=== PATIENT | female | born 1975 | race Caucasian/White ===

== ENCOUNTER 2020-01-02 08:41 | Emergency (ER) | payer OTHER ==
--- NOTE | 2020-01-02 09:11 | ED Physician Documentation ---
PD HPI ABD PAIN - Stated complaint Stated Complaint: RT SIDE PX - Chief complaint Chief Complaint: Abd Pain - History obtained from History obtained from: Patient - History of Present Illness Timing - onset: Yesterday Timing - duration: Days (2) Timing - details: Gradual onset Pain level max: 9 Pain level now: 5 Quality: Aching, Pain Location: RLQ Radiation: No: Chest, , Lower back, Left flank, Left shoulder, Right flank, R ight shoulder, Upper back Improved by: Laying still Worsened by: Moving Associated symptoms: Nausea. No: Fever, Vomiting, Hematemesis, Diarrhea, Constipation, Melena, Hematochezia, Dysuria, Hematuria, Chest pain Recently seen: Not recently seen - Additional information Additional information: 44-year-old female with right lower quadrant abdominal pain for the past 24 hours or so. Increasing today. Last time she ate or drank was yesterday. She has an IUD in place. Denies any possibility of . Has had kidney stones in the past, but states that this feels different. Review of Systems Ten Systems: 10 systems reviewed and negative Constitutional: denies: Fever, Chills Throat: denies: Sore throat Cardiac: denies: Chest pain / pressure Respiratory: denies: Cough GI: reports: Nausea. denies: Vomiting, Diarrhea, Hematemesis, Bloody / black stool : denies: Dysuria, Frequency, Hesitancy, Discharge, Vaginal bleeding, Now EGA Skin: denies: Rash Musculoskeletal: denies: Neck pain, Back pain Neurologic: denies: Focal weakness, Numbness, Headache PD PAST MEDICAL HISTORY - Past Medical History Past Medical History: Yes : Kidney stones - Past Surgical History Past Surgical History: No - Present Medications Home Medications: Ambulatory Orders Medication Instructions Recorded Confirmed Ibuprofen [Motrin] 800 mg PO Q8H PRN #30 tablet 01/02/20 - Allergies Allergies/Adverse Reactions: Allergies Allergy/AdvReac Type Severity Reaction Status Date / Time No Known Drug Allergies Allergy Verified 01/02/20 08:55 - Living Situation Living Situation: reports: With family Living Arrangement: reports: At home - Social History Does the pt smoke?: No Does the pt drink ETOH?: Yes Does the pt have substance abuse?: No - Family History Family history: reports: Non contributory - Immunizations Immunizations are current?: Yes PD ED PE NORMAL - Vitals Vital signs reviewed: Yes - General General: Alert and oriented X 3, No acute distress, Well developed/nourished - HEENT HEENT: Moist mucous membranes - Neck Neck: Supple, no meningeal sign - Cardiac Cardiac: RRR, Strong equal pulses - Respiratory Respiratory: No respiratory distress, Clear bilaterally - Abdomen Abdomen: Normal bowel sounds, Soft, Non distended, Other (Tender to palpation right lower quadrant. No peritoneal signs. Negative obturator and Rovsing signs.) - Derm Derm: Warm and dry - Extremities Extremities: No edema - Neuro Neuro: Alert and oriented X 3 - Psych Psych: Normal mood, Normal affect Results - Vitals Vitals: Vital Signs - 24 hr 01/02/20 01/02/20 01/02/20 08:50 08:54 11:59 Temperature 36.1 C L 36.8 C Heart Rate 69 70 69 Respiratory 20 16 18 Rate Blood Pressure 135/96 H 132/89 H 131/86 H O2 Saturation 100 100 98 Oxygen O2 Source Room air - Labs Labs: Laboratory Tests 01/02/20 01/02/20 01/02/20 09:11 09:11 09:50 WBC 11.5 H RBC 4.39 Hgb 13.8 Hct 39.9 MCV 90.9 MCH 31.4 H MCHC 34.6 RDW 12.9 Plt Count 212 MPV 9.9 Neut # (Auto) 9.4 H Lymph # (Auto) 1.2 L Ross # (Auto) 0.7 Eos # (Auto) 0.0 Baso # (Auto) 0.1 Absolute Nucleated RBC 0.00 Nucleated RBC % 0.0 Sodium 134 L Potassium 4.0 Chloride 102 Carbon Dioxide 24 Anion Gap 8.0 BUN 12 Creatinine 0.6 Estimated GFR (MDRD) 108 Glucose 106 H Calcium 8.5 Total Bilirubin 1.0 AST 16 ALT 12 Alkaline Phosphatase 46 Total Protein 6.7 Albumin 4.0 Globulin 2.7 Albumin/Globulin Ratio 1.5 Lipase 30 Urine Color YELLOW Urine Clarity CLEAR Urine pH 6.0 Ur Specific [place] 1.010 Urine Protein NEGATIVE Urine Glucose (UA) NEGATIVE Urine Ketones NEGATIVE Urine Occult Blood NEGATIVE Urine Nitrite NEGATIVE Urine Bilirubin NEGATIVE Urine Urobilinogen 0.2 (NORMAL) Ur Leukocyte Esterase NEGATIVE Ur Microscopic Review NOT INDICATED Urine Culture Comments NOT INDICATED Urine HCG, Qual NEGATIVE - Rads (name of study) CT abdomen pelvis Radiology: Prelim report reviewed, EMP read contemporaneously, See rad report (Free fluid in the right pelvis with a suspected ovarian cyst measuring 5 cm. Pelvic ultrasound is recommended to assess for potential torsion. No findings of appendicitis. ) Pelvic Ultrasound Radiology: Prelim report reviewed, EMP read contemporaneously, See rad report (No visualized torsion at the time of exam. Multiple right ovarian cyst as above) PD MEDICAL DECISION MAKING - ED course Complexity details: reviewed results, re-evaluated patient, considered differential, d/w patient ED course: 44-year-old female presents to the emergency department with right sided abdominal/pelvic pain. Appears to be secondary to an ovarian cyst. No appendicitis. She is well-appearing, nontoxic. Afebrile. No vaginal bleeding or discharge. Declines pelvic exam. We will continue supportive care and have her follow-up with her doctor. Patient counseled regarding signs and symptoms for which I believe and urgent re-evaluation would be necessary. Patient with good understanding of and agreement to plan and is comfortable going home at this time This document was made in part using voice recognition software. While efforts are made to proofread this document, sound alike and grammatical errors may occur. Departure - Departure Disposition: Home, Self Care Clinical Impression: Ovarian cyst Qualifiers: Laterality: right Qualified Code(s): N83.201 - Unspecified ovarian cyst, right side Condition: Good Instructions: ED Cyst Ovarian Follow-Up: your,doctor in 1 week [Other] Prescriptions: Ibuprofen [Motrin] 800 mg PO Q8H PRN #30 tablet PRN Reason: PAIN &/OR FEVER Comments: Return if you worsen. You appear to have a right-sided ovarian cyst today on ultrasound. Your doctor can consider repeat ultrasound in 4 to 6 weeks to ensure resolution. This should resolve on its own. Discharge Date/Time: 01/02/20 12:01
[2020-01-02 09:20] LABS: BASOPHILS # (AUTO) 0.1 10^3/uL (0.0-0.1); BASOPHILS % (AUTO) 0.5 %; EOSINOPHILS % (AUTO) 0.3 %; HGB - HEMOGLOBIN 13.8 g/dL (12.0-16.0); LYMPHOCYTES # (AUTO) 1.2 10^3/uL (1.5-3.5); LYMPHOCYTES % (AUTO) 10.8 %; MEAN CORPUSCULAR HEMOGLOBIN 31.4 pg (27.0-31.0); MEAN CORPUSCULAR HGB CONC 34.6 g/dL (32.0-36.0); MEAN CORPUSCULAR VOLUME 90.9 fL (81.0-99.0); MEAN PLATELET VOLUME 9.9 fL (7.9-10.8); MONOCYTES # (AUTO) 0.7 10^3/uL (0.0-1.0); MONOCYTES % (AUTO) 5.7 %; NEUTROPHILS # (AUTO) 9.4 10^3/uL (1.5-6.6); NEUTROPHILS % (AUTO) 82.2 %; PLT - PLATELET COUNT 212 10^3/uL (130-450); RED BLOOD COUNT 4.39 10^6/uL (4.20-5.40); RED CELL DISTRIBUTION WIDTH 12.9 % (12.0-15.0); WHITE BLOOD COUNT 11.5 x10^3/uL (4.8-10.8)
[2020-01-02] MEDS ORDERED: IOVERSOL 320 100 ML VIAL IVP ONE ×2 (09:31→09:59)
[2020-01-02 09:32] LABS: ALBUMIN/GLOBULIN RATIO 1.5 (1.0-2.2); CALCIUM 8.5 mg/dL (8.5-10.3); CREATININE 0.6 mg/dL (0.4-1.0); TOTAL PROTEIN 6.7 g/dL (6.7-8.2)
[2020-01-02] MEDS ORDERED: diphenhydrAMINE INJ 50 MG/ML VIAL IVP STA (09:53)
--- NOTE | 2020-01-02 10:11 | CT Report ---
PROCEDURE: Abdomen/Pelvis W INDICATIONS: Right lower quadrant abdominal pain CONTRAST: IV CONTRAST: Optiray 320 ml: 100 PO CONTRAST: Optiray 320 ml0 TECHNIQUE: After the administration of oral and intravenous contrast, 5 mm thick sections acquired from the diap hragms to the symphysis. 5 mm thick coronal and sagittal reformats were acquired. For radiation dos e reduction, the following was used: automated exposure control, adjustment of mA and/or kV accordin g to patient size. COMPARISON: None. FINDINGS: Image quality: Excellent. Lung bases: Lung bases are clear. Heart size is normal. Solid organs: Liver and spleen are within normal limits. Gallbladder is normally distended without w all thickening or inflammatory change. Normal caliber biliary ducts. Pancreas enhances normally. No adrenal nodule. Kidneys demonstrate normal size and enhancement, without hydronephrosis. Peritoneum and bowel: Normal nondilated appendix. No periappendiceal inflammatory changes. No abnorma lly dilated or thickened loops of bowel otherwise. No pericolonic or mesenteric inflammatory changes. Nodes and vessels: No retroperitoneal or mesenteric adenopathy by size criteria. Aorta and inferior vena cava are normal in size. Pelvis: Bladder wall thickness is normal. IUD present within the uterus. There is free fluid in the right hemipelvis. Suspected right ovarian cyst measuring up to 5 cm. Left adnexa unremarkable. No in guinal hernia or inguinal lymphadenopathy. Bones: No suspicious bony lesions. No vertebral body compression fractures. IMPRESSION: Free fluid in the right pelvis with a suspected ovarian cyst measuring 5 cm. Pelvic ultra sound is recommended to assess for potential torsion. No findings of appendicitis. Reviewed by: Sylvester Mike MD on 01/02/2020 10:10 AM PDT Approved by: Sylvester Mike MD on 01/02/2020 10:10 AM PDT Station ID: [id number]
[2020-01-02 10:17] LABS: BILIRUBIN,URINE NEGATIVE (NEGATIVE); GLUCOSE, URINE (UA) NEGATIVE (NEGATIVE); KETONES,URINE (UA) NEGATIVE (NEGATIVE); LEUKOCYTE ESTERASE, URINE NEGATIVE (NEGATIVE); NITRITE,URINE NEGATIVE (NEGATIVE); OCCULT BLOOD,URINE NEGATIVE (NEGATIVE); PROTEIN,URINE NEGATIVE (NEGATIVE); UROBILINOGEN,URINE 0.2 (NORMAL) E.U./dL (NORMAL)
[2020-01-02 10:19] LABS: CLARITY,URINE CLEAR (CLEAR)
[2020-01-02 10:20] LABS: HCG UR QUAL NEGATIVE
--- NOTE | 2020-01-02 11:56 | Ultrasound Report ---
PROCEDURE: Pelvic w/Transvag+Doppler Comp INDICATIONS: pelvic pain, R TECHNIQUE: Real-time scanning was performed of the pelvic organs, with image documentation. Additional endovagi nal scanning was necessary due to incomplete visualization of the adnexal and endometrial structures by transabdominal scanning. COMPARISON: CT abdomen and pelvis 01/02/2020. FINDINGS: Transabdominal scanning: Limited scanning through the kidneys shows no hydronephrosis. No pathologi c free abdominal or pelvic fluid. Endovaginal scanning: Uterus: Uterus is normal in size at 9.4 x 4.1 x 5.8 cm. The endometrium measures 7 mm in combined t hickness. Intrauterine device is present. Nabothian cyst is noted. Ovaries: Right ovary measures 6.7 x 4.0 x 4.3 cm, volume 6.1 cc. Less than 12 follicles are noted. M ultiple hypoechoic foci are present the largest measuring approximately 3.8 x 2.6 x 3.6 cm. Left ovar y measures 1.8 x 1.7 x 1.4 cm with a volume of 2.3 cc. Less than 12 follicles are noted. Bilateral ar terial flow is identified. Trace dependent free fluid is noted. IMPRESSION: 1. No visualized torsion at time of exam. 2. Multiple right ovarian cysts as above. Reviewed by: Josefa Cordon MD on 01/02/2020 11:54 AM PDT Approved by: Josefa Cordon MD on 01/02/2020 11:54 AM PDT Station ID: [id number]
[2020-01-02 12:00] VITALS: BP 131/86
== END 2020-01-02 12:01 | disposition home or self-care (01) ==
LOC: ED 08:41
DX: N83.201 Unspecified ovarian cyst, right side (principal); Z97.5 Presence of (intrauterine) contraceptive device
CPT/HCPCS: 36415; 74177; 76830; 76856; 80053; 81003; 81025; 83690; 85025; 93975; 96374; 99284; J1200; Q9967; 81001; 87086